=== PATIENT | female | born 1935 | race Caucasian/White ===

== ENCOUNTER → 2016-03-14 | Outpatient (CLI) | payer OTHER ==
[~2016-03-14] VITALS: Ht 160 cm; Wt 62.1 kg
[~2016-03-14] MED LIST: AMBIEN 5 MG TABL5 M1 PO; AMBIEN5 MG PO; APAP500 PO; ASPIRIN EC81 M1 PO; BACTRIM DS TAB1 EACH PO; CALCIUM CARBO1000 MG PO; CLARITIN10 M2 PO; CLARITIN10 MG PO; COD LIVER OIL1 EAC4 PO; CRANBERRY500 M1 PO; CRESTOR10 MG PO; DOXYCYCLINE HYC50 M1 PO; FORTEO; GRAPE SEED100 MG PO; IBUPROFEN 400400 M1 PO; K-DUR10 MEQ PO; LANSOPRAZOLE30 MG PO; LASIX 20 MG TAB20 MG PO; LIDODERM 5%1 PATC1 TRANSDERM; MEDROLDOSEPACK PO; MIRALAX17 GM PO; NITROFURANTOIN50 M4 PO; OMEPRAZOLE40 MG PO; ONDANSETRON HCL4 M2 PO; PREMARIN0.625 MG PO; PRESER VISION PO; PRESERVISION A1 EAC1 PO; PROBIOTIC1 EAC1 PO; PROSTAMEN SOFT1 EACH PO; RED YEAST RICE600 MG PO; TRAMADOL 50 MG50 MG PO; ULTRAM 50MG TAB50 MG PO; VITAMIN D1000 UNI1 PO
--- NOTE | ~2016-03-14 | HPC ---
[facility] [place] [address] PAIN MANAGEMENT CONSULTATION Name: OBDULIO BIGGS Room #: REG [facility] Deven.#: [id number] Admission: 03/14/16 Attend Phys: Lesile Eddy MD Discharge: Date of : 33 Report #: [id number] THIS REPORT FOR: //name// CC: Aiden Eddy DATE OF SERVICE: 03/14/2016 FOLLOWUP COMPLAINT: Pain in the right shoulder is back again and it was helped with the injection. FOLLOWUP HISTORY: The patient is an 80-year-old female who has been followed in the pain clinic because of chronic pain involving her shoulders as well as her wrist. She finds that myofascial pain is present in her right shoulder and is limiting her ability to engage in activities of daily living. She has some limited motion with abduction and adduction of her shoulder. She has undergone trigger points in the past and clean benefits from this. At this juncture, she would like to proceed with another injection to help control her pain. PHYSICAL EXAMINATION: Blood pressure is 136/90, pulse 86, respiratory rate 16, room air saturation 97%. The patient has pain and discomfort involving the right deltoid area of her arm. Palpation can produce trigger points in this area. She has some difficulty turning her steering wheel as well as picking up certain items with her wrist. IMPRESSION: 1. Myofascial pain, right deltoid area -- improves with trigger point injections. 2. Arthritic pain in the right wrist. 3. History of diverticulitis and gastrointestinal problems, using probiotics. RECOMMENDATIONS: We discussed treatment options with the patient. Risks and benefits of the injections involving the deltoid area were again reviewed. Possible complications were discussed. The patient elects to proceed. PROCEDURE NOTE: The patient was placed in the prone position. Her right deltoid area was sterilely prepped with a chlorhexidine solution, which was allowed to try. A 25-gauge needle was then advanced into the area of the trigger point. The patient states that this reproduced her discomfort. A total of 40 mg triamcinolone and 10 mL of 0.5% bupivacaine was injected. The patient tolerated the procedure well. Her pain decreased from 5 in her shoulder to 0 at the time of discharge. There was no muscle weakness at the time of discharge. [address] [address] PAIN MANAGEMENT CONSULTATION Name: OBDULIO BIGGS Linda Room #: REG [facility] Cammy#: [id number] Admission: 03/14/16 Attend Phys: Leslie Eddy MD Discharge: Date of : 33 Report #: [id number] She will follow up in the future as needed. We would like to thank you for letting us participate in her care. We hope she continues to improve. <ELECTRONICALLY SIGNED> By: Leslie Eddy MD 04/01/16 1018 [id number] Leslie Eddy MD /heri
[2016-03-14 10:40] VITALS: BP 136/90
== END | disposition home or self-care (01) ==
LOC: PAIN 07:17
DX: M79.1 Myalgia (principal); G89.29 Other chronic pain; M25.511 Pain in right shoulder; M25.531 Pain in right wrist; Z87.19 Personal history of other diseases of the digestive system

== ENCOUNTER 2016-05-10 11:15 | Inpatient (IN) | payer OTHER ==
[~2016-05-10] VITALS: Ht 162.6 cm; Wt 59.0 kg
--- NOTE | ~2016-05-10 | H ---
[facility] [place] [address] [place] [address] HISTORY AND PHYSICAL Name: OBDULIO BIGGS Room #: 537-P ADM IN M.R.#: [id number] Admission: 05/10/16 Attend Phys: Aiden Rock MD Discharge: Date of : 33 Report #: [id number] THIS REPORT FOR: //name// CC: Aiden Rock DATE OF SERVICE: 05/10/2016 DATE OF HOSPITALIZATION: 05/10/2016. HISTORY OF PRESENT ILLNESS: This is an 80-year-old female who called for help, stating she needed resp[facility] care in the [facility]. CHIEF COMPLAINT: Back pain. BRIEF HISTORY: This patient had the acute onset of mid back to upper lumbar pain in mid March on awakening 1 morning. She had trauma, although in retrospect had worn 1 inch heels to an event. She was in great discomfort and subsequent imaging revealed an acute L1 compression fracture. Because of persistent pain, she underwent kyphoplasty, which was uncomplicated and felt to be successful, although the patient had no significant pain relief. Subsequently, she developed pain in the left iliolumbar or sacroiliac region for which she was referred to the [place] pain clinic to see Dr. Jered Eddy. Dr. Eddy performed a local injection, which she states relieved a good portion of her "lumbar pain." However, following treatment in the pain clinic, the patient fell and her pain increased again. Currently, the patient states that she has pain in different areas of the back and in the abdomen, she feels a sense of "menstrual cramp." The abdominal "menstrual cramp" pain does seem to diminish when she positions her back against a hospital bed. She has not had nausea, vomiting, constipation, abdominal distention, but she has had some anorexia related to her pain. The patient called for respite care in the [facility] at [facility], but was told that she did not qualify. Today, the patient admitted that she is unable to get up and fix meals and care for herself because of the severity and unrelenting nature of her back pain. She is scheduled to undergo nuclear bone scan on 05/13/2016. PAST MEDICAL HISTORY: The patient has known osteoporosis and has the diagnosis of an acute L1 compression fracture. History of gastroesophageal reflux, hypercholesterolemia, recurrent cystitis. 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 PAST SURGICAL HISTORY: Tonsillectomy 1939, appendectomy in 2, had one D and C, has had bilateral cataracts extracted in 2012, underwent vaginal [facility] [place] [place] [address] [place] [address] HISTORY AND PHYSICAL Name: OBDULIO BIGGS Room #: 537-P [facility] IN M.R.#: [id number] Admission: 05/10/16 Attend Phys: Aiden Rock MD Discharge: Date of : 33 Report #: [id number] hysterectomy, A and P repair, enterocele repair and a TVT. ALLERGIES: PENICILLIN (URTICARIA) INTOLERANT TO MOST STATINS THERAPIES AND DEVELOPED DIARRHEA WITH NABUMETONE. HAD TENDINOPATHY FROM LEVOFLOXACIN. MEDICATIONS: Lasix 20 mg 1-2 daily for edema, potassium chloride 10 mEq daily, Premarin vaginal cream three times weekly, omeprazole 40 mg daily, Crestor 20 mg each week, loratadine 10 mg daily, zolpidem 5 mg at bedtime, aspirin 81 mg, PreserVision multiple vitamins, vitamin D3 1000 units, calcium carbonate 1000 mg and cod liver oil. IMMUNIZATIONS: Tdap last administered 12/2015, Pneumococcal vaccines 2005, 2010, Zostavax 2006. SOCIAL HISTORY: The patient is , lives alone at [facility] in a [place], has been independent. [place], [place], nonsmoker, does have some social alcohol consumption. No history of recreational drug use. FAMILY HISTORY: Mother at age 84, had congestive heart failure and hypertension. Father at age 86 with congestive heart failure. She has no siblings. Two sons, the older of which is a type 2 diabetic, requiring insulin therapy. REVIEW OF SYSTEMS: The patient has had about 6 pounds of weight loss. She describes herself as very weak and vulnerable to fall. She has not had fever, chills or night time sweats. PULMONARY: The patient clears her throat and unusual number of times, but has not had coughing or wheezing. GASTROINTESTINAL: Describes some anorexia. Stools have been normal. Has not had blood, has had no cramping abdominal pains, but describes a sense of "menstrual cramps" through the abdomen a particular pain into the mid back. GENITOURINARY: Negative. Has been taking nitrofurantoin daily for prevention of urinary tract infections. PHYSICAL EXAMINATION: GENERAL: The patient is awake, alert and oriented in all spheres. She appears to have weight loss, appears rather gaunt compared to her usual. HEENT: Mucosal membranes are pink and moist. There are no oral lesions. Note is made of occasionally clearing her throat. LUNGS: Clear. CARDIOVASCULAR: S1, S2 are normal. No murmurs are present. EXTREMITIES: There is minimal peripheral edema. MUSCULOSKELETAL: The patient has pain on palpation of the back starting in the upper lumbar lower thoracic region, but also extending into the left lower lumbar and sacroiliac region. [facility] [place] [place] [address] [address] HISTORY AND PHYSICAL Name: OBDULIO BIGGS Room #: 537-P [facility] IN M.R.#: [id number] Admission: 05/10/16 Attend Phys: Aiden Rock MD Discharge: Date of : 33 Report #: [id number] ABDOMEN: Soft, scaphoid. No masses, tenderness or organomegaly. The patient has no guarding. ASSESSMENT: 1. Refractory back pain, with documented L1 compression fracture treated by kyphoplasty as well as localized pain in the left sacroiliac region. The unrelenting nature of the pain is concerning and that the patient has developed weakness, weight loss and inability to care for herself at home. Must now exclude other etiologies to include a retroperitoneal process such as neoplasia or multiple myeloma. Could also consider disk space abscess or other atypical complications. 2. Osteoporosis. 3. Weight loss, and unintentional. 4. Gastroesophageal reflux disease, high dose proton pump inhibitor therapy. 5. Hereditary hemochromatosis carrier (H63D). PLAN: Orders to include MRI of the complete spine, bone scan whole body. Chest x-ray because of the weight loss and the patient's report of increased cough. To screen for retroperitoneal disease, I have ordered CT scan of the abdomen and pelvis. Laboratory to include inflammatory markers, the immunofixation as well as CBC, chemistry profile, urinalysis, and stool for occult blood. We will try to control the patient's pain without narcotics as she is intolerant. We will reorder the tramadol that she has been using at home. Add a lidocaine 5% patch as well as diclofenac 1% topical cream topical gel. If the pain gets severe we will allow doses of Toradol injection. <ELECTRONICALLY SIGNED> By: Aiden Rock MD 05/11/16 0718 1343 1427 Aiden Rock MD /nt
--- NOTE | ~2016-05-10 | D ---
[facility] [place] [address] [place] [address] DISCHARGE SUMMARY Name: OBDULIO BIGGS Room #: 537-P [facility] IN M.R.#: [id number] Admission: 05/10/16 Attend Phys: Aiden Rock MD Discharge: Date of : 33 Report #: [id number] THIS REPORT FOR: //name// CC: Aiden Shankar MD DATE OF SERVICE: 05/14/2016 DATE OF ADMISSION: 05/10/2016. DATE OF DISCHARGE: 05/14/2016. HISTORY OF PRESENT ILLNESS: This is an 80-year-old female who developed mid-to-low back pain spontaneously in mid March, and at that time, was found to have an acute L1 compression fracture, which because of persistent pain, was treated with kyphoplasty, performed by Dr. Av Leon. The patient initially had some reduction in pain, but her discomfort increased. She was seen subsequently by Dr. Jered Eddy, who identified a trigger point in the region of the sacroiliac joint, which she injected. The patient had some transient relief, but while leaving the pain clinic, she fell. At the time of hospitalization, the patient had incapacitating back pain, was unable to get up out of bed or care for herself. She requested admission to a care facility, but hospitalization was recommended to her for further assessment. HOSPITAL COURSE: The patient had increasingly severe back pain and a known history of recent L1 compression fracture. She had been scheduled as an outpatient to undergo a bone scan searching for other etiologies or sources of pain. Serum immunofixation was negative for monoclonal proteins, CBC and sedimentation rate and other inflammatory markers were normal. Repeat MRI suggested increasing evidence of edema and fracture in the lower endplate of the T12 vertebral body in addition to the previously treated L1 compression fracture, and the bone scan confirmed similar findings with marked increased uptake in T12. Because of concern about retroperitoneal disease, the patient underwent a CT scan of the abdomen and pelvis, which showed no intra-abdominal or retroperitoneal disorders. Because of weight loss, the patient underwent an initial chest x-ray, which identified a 1.7 cm right apical pulmonary nodule. A followup CT scan of the chest showed a poorly marginated mass lesion in the right apex, measuring 1.7 cm, which is felt to be a new pulmonary nodule. The patient currently declines any additional testing or consideration for treatment with discussion about PET scanning or other modalities of followup diagnosis. Because of unrelenting pain, the patient was seen in consultation by the nurse practitioner who works with Dr. Jered Eddy and was seen in consultation by Dr. Av Leon, who on 05/13, performed an uncomplicated kyphoplasty of T12. On the morning of discharge, the patient reported improved pain after the second kyphoplasty. She did have some initial nausea, which resolved with a single [facility] [address] [place] [address] DISCHARGE SUMMARY Name: OBDULIO BIGGS Room #: 537-P [facility] IN M.R.#: [id number] Admission: 05/10/16 Attend Phys: Aiden Rock MD Discharge: Date of : 33 Report #: [id number] dose of ondansetron intravenously. During hospitalization, the patient was found to be hypoalbuminemic, but her prealbumin was normal. She has had some weight loss and during hospitalization, was able to eat and take Boost supplements. The patient received intravenous Toradol, with excellent pain relief, but after the doses of Toradol , she continued using a 5% lidocaine patch and oral tramadol 100 mg t.i.d. with fair pain results. The patient was seen by physical therapy and was able to ambulate around the facility while using a rolling walker. There were no other complications identified. FINAL DIAGNOSES: 1. Acute T12 compression fracture. 2. Subacute L1 compression fracture, treated with kyphoplasty. 3. Osteoporosis. 4. Weight loss, unintentional. 5. Gastroesophageal reflux disease. 6. Hypercholesterolemia. 7. Recurrent cystitis. 8. Hemochromatosis carrier. 9. Pulmonary nodule, right upper lobe. DISCHARGE MEDICATIONS: Tramadol 50-100 mg t.i.d. p.r.n. pain, acetaminophen 1000 mg q. 4 hours p.r.n. pain, polyethylene glycol 17 grams daily p.r.n. constipation and lidocaine 5% patch daily for 7 days. Additional medications: Potassium chloride 10 mEq daily, Lasix 20 mg daily, calcium carbonate 1000 mg b.i.d., cholecalciferol 1000 units daily, cod liver oil 1 capsule daily, aspirin enteric-coated 81 mg daily, rosuvastatin 20 mg once weekly, loratadine 10 mg daily, Lactobacillus acidophilus probiotic one capsule daily, PreserVision one tablet b.i.d., conjugated estrogens 0.625 mg daily, zolpidem 5 mg at bedtime and ibuprofen 400 mg q. 4 hours p.r.n. pain. DISPOSITION: The patient is discharged from [facility] to go to the jail unit of [facility] with physical therapy, occupational therapy and use of a walker until her strength and pain control are adequate to return to her self-care [place] with the estimated length of stay 7-10 days. Physical therapy and occupational therapy consults have been placed. PROCEDURE: T12 kyphoplasty. COMPLICATIONS: None. [address] [address] DISCHARGE SUMMARY Name: OBDULIO BIGGS Room #: 537-P ADM IN M.R.#: [id number] Admission: 05/10/16 Attend Phys: Aiden Rock MD Discharge: Date of : 33 Report #: [id number] CONSULTANTS: Av Leon M.D. (interventional radiology) and Jammie Eddy M.D. (pain management). By: 0718 1022 Aiden Rock MD /nt
[~2016-05-10 11:15] MED LIST changes: -APAP500 PO; -LIDODERM 5%1 PATC1 TRANSDERM; -MIRALAX17 GM PO; -ONDANSETRON HCL4 M2 PO
[2016-05-10 13:50] VITALS: BP 108/60
[2016-05-10 15:29] LABS: ABSOLUTE NEUTROPHILS 10.1 thou/uL (1.4-8.2); BASOPHILS 0.6 % (0.0-2.0); EOSINOPHILS 1.8 % (0.0-3.0); HEMATOCRIT 42.8 % (37.0-47.0); HEMOGLOBIN 14.4 gm/dL (12.0-15.0); LYMPHOCYTES 9.5 % (24.0-44.0); MCH 31.4 pg (26.0-34.0); MCHC 33.7 g/dL (28.0-37.0); MCV 93.1 fL (80.0-100.0); MONOCYTES 7.5 % (1.0-8.0); PLATELET COUNT 499 thou/uL (150-400); POLYS 80.6 % (36.0-66.0); RBC 4.59 mil/uL (4.20-5.00); RDW 13.7 % (10.5-14.5); WBC 12.5 thou/uL (4.0-11.0)
[2016-05-10 15:36] LABS: MANUAL DIFF NO
[2016-05-10 15:39] LABS: URINE BILIRUBIN NEGATIVE (Negative); URINE BLOOD NEGATIVE (Negative); URINE COLOR YELLOW; URINE GLUCOSE-RANDOM* NEGATIVE (Negative); URINE KETONES NEGATIVE (Negative); URINE LEUKOCYTES-REFLEX TRACE (Negative); URINE PROTEIN (DIPSTICK) NEGATIVE (Negative); URINE SPECIFIC GRAVITY <= 1.005 (1.003-1.035); URINE UROBILINOGEN 0.2 E.U./dl (0.2-1.0)
[2016-05-10 15:44] VITALS: BP 119/69
[2016-05-10 15:44] LABS: ALKALINE PHOSPHATASE 107 U/L (46-116); ANION GAP 7 mmol/L (7-16); BUN 18 mg/dL (7-18); CALCIUM 8.9 mg/dL (8.5-10.1); CHLORIDE 104 mmol/L (98-107); CO2 27 mmol/L (21-32); GLUCOSE 97 mg/dL (70-99); POTASSIUM 3.7 mmol/L (3.5-5.1); SGOT 14 U/L (15-37); SGPT 19 U/L (30-65); SODIUM 138 mmol/L (136-145); TOTAL BILIRUBIN 0.4 mg/dL (<0.1-1.0); TOTAL PROTEIN 6.1 g/dL (6.4-8.2)
[2016-05-10 19:40] VITALS: BP 120/70
[2016-05-10 21:10] LABS: IgA 102 mg/dL (64-422); IgG 491 mg/dL (700-1600); IgM 85 mg/dL (26-217)
[2016-05-11 00:44] VITALS: BP 108/60
[2016-05-11 16:00] VITALS: BP 98/54
[2016-05-11 19:39] VITALS: BP 99/47
[2016-05-12 04:10] VITALS: BP 103/53
[2016-05-12 07:25] VITALS: BP 120/66
[2016-05-12 15:59] VITALS: BP 99/59
[2016-05-12 18:56] VITALS: BP 115/55
[2016-05-13 03:13] VITALS: BP 109/55
[2016-05-13 07:53] VITALS: BP 110/56
[2016-05-13 13:03] VITALS: BP 110/56
[2016-05-13 15:40] VITALS: BP 136/75
[2016-05-13 20:00] VITALS: BP 135/61
[2016-05-14] VITALS: BP 119/53
[2016-05-14 04:00] VITALS: BP 115/47
[2016-05-14] MEDS ORDERED: APAP500 PO (06:58)
[2016-05-14] MEDS ORDERED: ULTRAM 50MG TAB50 MG PO (06:58)
[2016-05-14] MEDS ORDERED: MIRALAX17 GM PO (06:59)
[2016-05-14] MEDS ORDERED: LIDODERM 5%1 PATC1 TRANSDERM (06:59)
[2016-05-14 07:35] VITALS: BP 104/59
[2016-05-14] MEDS ORDERED: ONDANSETRON HCL4 M2 PO (14:40)
== END 2016-05-14 15:08 | DRG 516 ==
LOC: 5S 11:15
PROVIDERS: Internal Medicine
PROC: 0PS43ZZ Reposition Thoracic Vertebra, Percutaneous Approach (ICD-10-PCS; principal; 2016-05-13)
PROC: 0PU43JZ Supplement Thoracic Vertebra with Synthetic Substitute, Percutaneous Approach (ICD-10-PCS; principal; 2016-05-13)
DX: M48.56XA Collapsed vertebra, not elsewhere classified, lumbar region, initial encounter for fracture (principal); E44.1 Mild protein-calorie malnutrition; M80.88XA Other osteoporosis with current pathological fracture, vertebra(e), initial encounter for fracture; E83.110 Hereditary hemochromatosis; R63.4 Abnormal weight loss; K21.9 Gastro-esophageal reflux disease without esophagitis; E78.00 Pure hypercholesterolemia, unspecified; R91.1 Solitary pulmonary nodule; M19.90 Unspecified osteoarthritis, unspecified site; E78.5 Hyperlipidemia, unspecified; G43.909 Migraine, unspecified, not intractable, without status migrainosus; H35.30 Unspecified macular degeneration; Z68.22 Body mass index [BMI] 22.0-22.9, adult; Z98.42 Cataract extraction status, left eye; Z90.49 Acquired absence of other specified parts of digestive tract; Z98.41 Cataract extraction status, right eye; Z90.710 Acquired absence of both cervix and uterus; Z88.0 Allergy status to penicillin; Z88.1 Allergy status to other antibiotic agents; Z88.8 Allergy status to other drugs, medicaments and biological substances; Z82.49 Family history of ischemic heart disease and other diseases of the circulatory system; Z83.3 Family history of diabetes mellitus
CPT/HCPCS: 10086

== ENCOUNTER → 2016-06-13 | Outpatient (CLI) | payer OTHER ==
[~2016-06-13] VITALS: Ht 157.5 cm; Wt 56.3 kg
[~2016-06-13] MED LIST changes: +APAP500 PO; +LIDODERM 5%1 PATC1 TRANSDERM; +MIRALAX17 GM PO; +ONDANSETRON HCL4 M2 PO
--- NOTE | ~2016-06-13 | HPC ---
[facility] [address] [address] PAIN MANAGEMENT CONSULTATION Name: OBDULIO BIGGS [id number] Admission: 06/13/16 Attend Phys: Leslie Eddy MD Discharge: Date of : 33 Report #: [id number] THIS REPORT FOR: //name// CC: Aiden Eddy DATE OF SERVICE: 06/13/2016 FOLLOWUP COMPLAINT: I had a compression fracture since I saw you last. FOLLOWUP HISTORY: The patient is an 80-year-old female who has been followed in the pain clinic because of chronic pain involving her right shoulder. She has had trigger point injections to these areas in the past and gleaned benefits from these. She has a new trigger point area in the right deltoid area. Palpation in this area reproduces her discomfort. She also has pain and discomfort in the low back area, which is improving albeit slowly. She rates her pain as a 6/10. PHYSICAL EXAMINATION: Blood pressure 135/67, pulse 82, respiratory rate 16, room air saturation 93%. Height 5 feet 2 inches, weight 124 pounds, BMI is 22. The patient has fallen since we saw her last. She has been hospitalized because of a compression fracture. Old compression fracture was spotted at about T12 and new compression fracture at L1-L2. A vertebroplasty has been performed. IMPRESSION: 1. Right deltoid trigger point. 2. L1 compression fracture status post vertebroplasty - still feeling weak. 3. Osteoporosis. RECOMMENDATIONS: We discussed treatment options with the patient. Risks and benefits of a trigger point injection in the right arm were explained. Possible complications were reviewed. The patient elects to proceed. PROCEDURE NOTE: The patient was placed in the left lateral decubitus position. The trigger point in the posterior deltoid area was identified. A 25-gauge needle with injection of 10 mL of 0.5% bupivacaine and 40 mg triamcinolone was injected after this area had been sterilely prepped with a chlorhexidine solution and allowed to try. The patient tolerated the procedure well. There were no complications. She will follow up in the future as needed. We would like to thank you for letting us participate in her care. We hope she continues to improve. By: [id number] Leslie Eddy MD /heri
[2016-06-13 11:22] VITALS: BP 135/67
== END ==
LOC: PAIN 06:51
DX: M25.512 Pain in left shoulder (principal); M80.88XA Other osteoporosis with current pathological fracture, vertebra(e), initial encounter for fracture; M19.90 Unspecified osteoarthritis, unspecified site

== ENCOUNTER → 2016-07-07 | Outpatient (CLI) | payer OTHER | LOC: RAD 05:00 | DX: Z12.31 Encounter for screening mammogram for malignant neoplasm of breast (principal) ==

== ENCOUNTER → 2016-08-01 | Outpatient (CLI) | payer OTHER ==
[~2016-08-01] VITALS: Ht 157.5 cm; Wt 56.7 kg
[~2016-08-01] MED LIST changes: +VOLTAREN GEL 1100 G1 TOP
--- NOTE | ~2016-08-01 | HPC ---
[facility] [place] [address] [place] [address] PAIN MANAGEMENT CONSULTATION Name: OBDULIO BIGGS [facility] [id number] Admission: 08/01/16 Attend Phys: Leslie Eddy MD Discharge: Date of : 33 Report #: [id number] THIS REPORT FOR: //name// CC: Aiden Eddy DATE OF SERVICE: 08/01/2016 FOLLOWUP COMPLAINT: The pain was not successful in the muscle area. FOLLOWUP HISTORY: The patient is an 80-year-old female who has been followed in the pain clinic because of chronic pain associated with her shoulders. She has undergone injections in the left and right shoulders in the past. She underwent a trigger point injection on 06/13/2016. This was in the area of the triceps. She continued to have pain and discomfort. She did not note a significant improvement in her pain after the last injection. She felt that those in the deltoid area had been more affective and would like to proceed with another injection today. She rates her pain as 4/10 at this juncture. She has significant pain and discomfort, which makes it difficult to abduct her arm. PHYSICAL EXAMINATION: Blood pressure 143/73, pulse 85, respiratory rate 15, room air saturation 98%. The patient has pain and discomfort in the right shoulder. She has some limited rotation of the shoulder joints. She has a trigger point in the deltoid area on the posterior side as well as in the anterior side of her shoulder. Palpation in both of these areas caused pain and discomfort. IMPRESSION: 1. Right shoulder trigger points anterior and posterior deltoid area. 2. History of L1 compression fracture status post vertebroplasty. 3. Osteoporosis. RECOMMENDATIONS: We will proceed with a trigger point injection to the left and to the right anterior deltoid and posterior deltoid area. Risks and benefits of the procedure were reviewed. The patient elects to proceed. PROCEDURE NOTE: The patient was placed in the left lateral decubitus position. The right deltoid anterior and posterior areas were sterilely prepped with a chlorhexidine solution and allowed to dry. A 25-gauge needle was then advanced into the posterior deltoid area. The patient states this reproduced a component of her pain. A total of 5 mL of 0.5% bupivacaine and 2 mL 1% lidocaine with 20 mg triamcinolone was injected. The anterior portion of the deltoid area was identified for trigger points. The trigger point was noted. A 25-gauge needle was then advanced into this area. A total of 20 mg triamcinolone 5 mL of 0.5% [address] [address] PAIN MANAGEMENT CONSULTATION Name: OBDULIO BIGGS [id number] Admission: 08/01/16 Attend Phys: Leslie Eddy MD Discharge: Date of : 33 Report #: [id number] bupivacaine and 2 mL 1% lidocaine was injected. The patient tolerated the procedure well. There were no complications. Pain decreased from 6 to 0 at the time of discharge. We would like to thank you for letting us participate in her care. We hope she continues to improve. By: 1200 2316 Leslie Eddy MD /nt
[2016-08-01 08:13] VITALS: BP 143/73
== END ==
LOC: PAIN 06:46
DX: M25.512 Pain in left shoulder (principal); M25.511 Pain in right shoulder; M81.0 Age-related osteoporosis without current pathological fracture; Z87.81 Personal history of (healed) traumatic fracture; G89.29 Other chronic pain; M79.1 Myalgia